=== PATIENT | male | born 1975 ===

== ENCOUNTER 2017-08-16 21:08 | Emergency (ER) | payer SELFPAY ==
[2017-08-16 21:16] VITALS: BP 143/80; PULSE 97; RESP 16; TEMP 97.8; O2SAT 98
--- NOTE | 2017-08-16 22:14 | C.PDOC ---
History Of Present Illness 42 year old male presents to the ER with a complaint of left shoulder pain after he tripped and fell while walking out of work [employer] and landed on his left arm. Patient states he believes he heard a "crack" when he landed. Denies head injury, LOC, neck pain, weakness, or numbness. Time Seen by Provider: 08/16/17 21:35 Chief Complaint (Nursing): Upper Extremity Problem/Injury History Per: Patient History/Exam Limitations: no limitations Onset/Duration Of Symptoms: Hrs Current Symptoms Are (Timing): Still Present Exacerbating Factor(s): Movement Recent travel outside of the [place]: No Past Medical History Reviewed: Historical Data, Nursing Documentation, Vital Signs Vital Signs: Last Vital Signs Temp 97.8 F 08/16/17 21:13 Pulse 97 H 08/16/17 21:13 Resp 16 08/16/17 21:13 BP 143/80 08/16/17 21:13 Pulse Ox 98 08/16/17 22:34 - Medical History PMH: No Chronic Diseases Surgical History: No Surg Hx Family History: States: Unknown Family Hx - Social History Hx Alcohol Use: No Hx Substance Use: No Review Of Systems Musculoskeletal: Positive for: Shoulder Pain. Negative for: Neck Pain Neurological: Negative for: Weakness, Numbness, Other (LOC) Physical Exam - Physical Exam Appears: Non-toxic, No Acute Distress Skin: Normal Color, Warm, Dry Head: Atraumatic, Normacephalic Neck: Normal, No Midline Cervical Tenderness, No Paracervical Tenderness, Supple Chest: Symmetrical, No Tenderness Cardiovascular: Rhythm Regular Respiratory: Normal Breath Sounds, No Rales, No Rhonchi, No Wheezing Extremity: Tenderness (Anterior left shoulder), No Deformity, No Swelling, Other (ROM of left shoulder limited due secondary to pain) Pulses: Left Radial: Normal, Right Radial: Normal Neurological/Psych: Oriented x3, Normal Speech, Normal Motor, Normal Sensation ED Course And Treatment O2 Sat by Pulse Oximetry: 98 (on RA) Pulse Ox Interpretation: Normal Medical Decision Making Medical Decision Making: Left shoulder x-ray ordered. Tylenol administered for pain. X-rays are negative. Shoulder sling applied Disposition - Disposition Referrals: Cristina Siddiqi MD [Staff Provider] - [facility] [Outside] Disposition: HOME/ ROUTINE Disposition Time: 22:32 Condition: GOOD Additional Instructions: Alvin un seguimiento con la clnica ortopdica / ortopdica dentro de 3-5 bradley. 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 - Scribe Statement The provider has reviewed the documentation as recorded by the Scribe Anselmo Covarrubias All medical record entries made by the Scribe were at my direction and personally dictated by me. I have reviewed the chart and agree that the record accurately reflects my personal performance of the history, physical exam, medical decision making, and the department course for this patient. I have also personally directed, reviewed, and agree with the discharge instructions and disposition.
--- NOTE | 2017-08-17 08:11 | RAD ---
PROCEDURE: Radiographs of the Left Shoulder HISTORY: r/o fx COMPARISON: No prior. FINDINGS: BONES: No fracture JOINTS: . Glenohumeral and acromioclavicular osteoarthritis. SOFT TISSUES: Normal. OTHER FINDINGS: None. IMPRESSION: No fracture Arthrosis
== END 2017-08-16 22:53 | disposition home or self-care (01) ==
LOC: C.ER 21:08 → EDBD 21:08 → C.ER 22:53
DX: S43.402A Unspecified sprain of left shoulder joint, initial encounter (principal); W01.0XXA Fall on same level from slipping, tripping and stumbling without subsequent striking against object, initial encounter; Y93.01 Activity, walking, marching and hiking; Y99.0 Civilian activity done for income or pay